=== PATIENT | female | born 1990 | race Caucasian/White ===

== ENCOUNTER → 2017-12-28 08:39 | Outpatient (CLI) | payer OTHER ==
[~2017-12-28 08:39] MED LIST: OBSTETRIX DHA1 EACH
== END | disposition home or self-care (01) ==
LOC: SONOGRAMA 08:39
DX: E04.1 Nontoxic single thyroid nodule (principal)

== ENCOUNTER 2018-03-03 14:18 | Day surgery (SDC) | payer OTHER ==
[~2018-03-03] VITALS: Ht 170.2 cm; Wt 62.6 kg
[2018-03-03] MEDS ORDERED: DOXYCYCLINE HY100 MG PO (14:30)
[2018-03-03] MEDS ORDERED: KETO10TA2 PO (14:30)
[2018-03-04] MEDS ORDERED: AMOX-CLAV 500-1 EACH PO (14:24)
[2018-03-04] MEDS ORDERED: PERCOCET 5-3251 EACH PO (14:24)
[2018-03-04] MEDS ORDERED: INTESTINEX680 M1 PO (14:24)
== END 2018-03-04 08:00 | disposition home or self-care (01) ==
LOC: ER 14:18 → CIR.AMB 17:00 → SEC-K 03-04 08:37 → ER 03-04 08:37 → EDSTATUS 03-04 11:00 → O/R 03-04 13:43 → SEC-K 03-04 13:43 → ER 03-04 14:20
DX: K61.3 Ischiorectal abscess (principal); N76.4 Abscess of vulva; A49.01 Methicillin susceptible Staphylococcus aureus infection, unspecified site